=== PATIENT | male | born 1940 | race Caucasian/White ===

== ENCOUNTER 2024-04-25 08:03 | Observation (INO) ==
[2024-04-25] MEDS ORDERED: IOPAMIDOL 100 ML BOTTLE IV ONE (08:04)
[2024-04-25 08:59] LABS: Basophils # (Auto) 0.04 K/mcL (0.00-0.30); Basophils % (Auto) 0.6 % (0.0-2.0); Eosinophils # (Auto) 0.15 K/mcL (0.00-0.70); Eosinophils % (Auto) 2.3 % (0.0-7.0); Hematocrit 45.7 % (40.1-51.0); Hemoglobin 14.9 g/dL (13.7-17.5); Lymphocytes # (Auto) 1.63 K/mcL (1.50-4.80); Lymphocytes % (Auto) 25.1 % (15.5-49.0); Mean Cell Volume 96.8 fL (80.0-100.0); Mean Corpuscular HGB Conc 32.6 g/dL (31.0-36.0); Mean Platelet Volume 9.5 fL (8.8-12.5); Monocytes # (Auto) 0.89 K/mcL (0.10-0.90); Monocytes % (Auto) 13.7 % (1.0-12.0); Platelet Count 207 K/mcL (140-440); RBC 4.72 M/mcL (4.63-6.08); Red Cell Distribution Width 12.6 % (11.5-14.5); WBC 6.5 K/mcL (4.5-11.0)
[2024-04-25 09:21] LABS: ALT/SGPT 12 U/L (<40); AST/SGOT 22 U/L (<40); Albumin 3.8 gm/dL (3.2-5.2); Albumin/Globulin Ratio 1.4 (1.0-2.3); Alkaline Phosphatase 93 U/L (39-117); Bilirubin,Total 0.5 mg/dL (0.1-1.0); Blood Urea Nitrogen 19 mg/dL (8-23); Calcium 9.4 mg/dL (8.6-10.4); Carbon Dioxide 26 mmol/L (22-30); Chloride 104 mmol/L (96-108); Globulin 2.8 gm/dL (2.2-3.7); Glomerular Filtration Rate 78; Glucose 100 mg/dL (70-105); Potassium 3.8 mmol/L (3.3-5.1); Sodium 140 mmol/L (133-145)
[2024-04-25 09:26] LABS: Appearance,Urine Clear (Clear); Bilirubin,Urine Negative (Negative); Color,Urine Yellow; Glucose,Urine (UA) Negative (Negative); Ketones,Urine Negative (Negative); Leukocyte Esterase,Urine Negative /uL (Negative); Nitrate,Urine Negative (Negative); Protein,Urine Negative (Negative); Specific Gravity,Urine 1.015 (1.000-1.035); Urine Blood Negative ery/mcL (Negative); Urine Hyaline Cast 20 /lph (0-2); Urine RBC 0 /hpf (0-3); Urine Squamous Epithelial Cell 0 /hpf (0-4); Urine WBC 0 /hpf (0-4); Urobilinogen,Urine Normal
[2024-04-25 09:55] LABS: INR 1.1 (0.9-1.1); Partial Thromboplastin Time 27.9 sec (20.0-37.0); Prothrombin Time 15.3 sec (11.9-14.5)
[2024-04-25] MEDS: CLOPIDOGREL 300 MG TABLET PO ONE (10:11)
[2024-04-25] MEDS: ATORVASTATIN 40 MG TABLET PO ONE (10:11)
[2024-04-25] MEDS: ASPIRIN 81 MG TAB.CHEW CHEWED ONE ×2 (10:13)
[2024-04-25] MEDS ORDERED: POLYETHYLENE GLYCOL 3350 17 GM PACKET PO PRN (14:38)
[2024-04-25] MEDS ORDERED: SENNOSIDES 1 TABLET PO PRN (14:38)
[2024-04-25] MEDS ORDERED: ONDANSETRON 4 MG/2 ML VIAL IV PRN (14:38)
[2024-04-25 15:16] LABS: Thyroid Stimulating Hormone 4.31 uIU/mL (0.27-5.01)
[2024-04-25 15:41] LABS: Estimated Average Glucose(eAG) 114 mg/dL; HDL Cholesterol 30 mg/dL (>40); Hemoglobin A1C 5.6 % Hgb (4.0-6.0); LDL Cholesterol,Calculated 93 mg/dL (<100); Non-HDL Cholesterol 117 mg/dL (<130); Triglycerides 121 mg/dL (<150)
[2024-04-25] MEDS: ACETAMINOPHEN 325 MG TABLET PO PRN (16:00)
[2024-04-25] MEDS: 0.9 % SODIUM CHLORIDE 10 ML SYRINGE IV SCH (16:40)
[2024-04-25] MEDS: lamoTRIgine 25 MG TABLET PO SCH (21:27)
[2024-04-25] MEDS: QUEtiapine 25 MG TABLET PO SCH (21:27)
[2024-04-25] MEDS: ATORVASTATIN 40 MG TABLET ONE (22:18)
[2024-04-26 07:08] LABS: Basophils # (Auto) 0.06 K/mcL (0.00-0.30); Basophils % (Auto) 1.1 % (0.0-2.0); Eosinophils # (Auto) 0.22 K/mcL (0.00-0.70); Eosinophils % (Auto) 4.1 % (0.0-7.0); Hematocrit 46.1 % (40.1-51.0); Hemoglobin 15.4 g/dL (13.7-17.5); Lymphocytes % (Auto) 29.7 % (15.5-49.0); Mean Cell Volume 96.8 fL (80.0-100.0); Mean Corpuscular HGB Conc 33.4 g/dL (31.0-36.0); Mean Platelet Volume 10.2 fL (8.8-12.5); Monocytes # (Auto) 0.91 K/mcL (0.10-0.90); Monocytes % (Auto) 16.9 % (1.0-12.0); Neutrophils % (Auto) 47.8 % (38.0-78.0); Platelet Count 198 K/mcL (140-440); RBC 4.76 M/mcL (4.63-6.08); Red Cell Distribution Width 12.6 % (11.5-14.5); WBC 5.4 K/mcL (4.5-11.0)
[2024-04-26 07:33] LABS: Blood Urea Nitrogen 21 mg/dL (8-23); Calcium 9.5 mg/dL (8.6-10.4); Carbon Dioxide 23 mmol/L (22-30); Chloride 108 mmol/L (96-108); Glomerular Filtration Rate 82; Glucose 91 mg/dL (70-105); Potassium 4.3 mmol/L (3.3-5.1); Sodium 143 mmol/L (133-145)
[2024-04-26] MEDS: PARoxetine 20 MG TABLET PO SCH (08:04)
[2024-04-26] MEDS: TAMSULOSIN 0.4 MG CAPSULE PO SCH (08:04)
[2024-04-26] MEDS: CLOPIDOGREL 75 MG TABLET PO SCH (08:05)
[2024-04-26] MEDS: ASPIRIN 81 MG TAB.CHEW CHEWED SCH (08:05)
[2024-04-26] MEDS ORDERED: ASPIRIN 81 MG TAB.CHEW CHEWED SCH (09:00)
[2024-04-26] MEDS ORDERED: ATORVASTATIN 40 MG TABLET PO SCH (21:00)
== END 2024-04-26 11:15 | disposition home or self-care (01) ==
LOC: MEDSUR 08:03 → ED 08:03 → MEDSUR 14:30
PROVIDERS: ADMIT Student in an Organized Health Care Education/Training Program; ATTEND Student in an Organized Health Care Education/Training Program